=== PATIENT | female | born 1935 | race Caucasian/White ===

== ENCOUNTER 2016-09-24 16:07 | Inpatient (IN) | payer OTHER ==
[~2016-09-24] VITALS: Ht 149.9 cm; Wt 49.9 kg
[~2016-09-24 16:07] MED LIST: ACET-3820 PO; ATI.5 PO; CILO100T13 PO; MECL-272 PO; METO25TA PO; PENT400T PO; TRAM50TA94 PO
[2016-09-24 16:18] VITALS: BP 116/78
--- NOTE | 2016-09-24 16:59 | NUR ---
Patient to XRAY via wheelchair per tech.
--- NOTE | 2016-09-24 17:10 | NUR ---
Patient to lobby from XRAY via wheelchair per tech.
--- NOTE | 2016-09-24 17:13 | NUR ---
Patient to bed 07.
--- NOTE | 2016-09-24 17:14 | NUR ---
80/F BIB FRIEND C/O RIGHT UPPER ARM PAIN ONLY WHEN MOVING X 1 WK. PT STATES PT HAD A FALL 3 MONTHS AGO;DENIES ALOC. DENIES N/V/D; SKIN IS PINK/WARM/DRY; AAOX4 AMBULATES WITH CANE; LUNGS CLEAR BL; HR EVEN AND REGULAR; PT DENIES ANY FEVER, CP, SOB AT THIS TIME; PATIENT STATES PAIN OF 10/10 ONLY WHEN MOVES HER RIGHT ARM; VSS; PATIENT POSITIONED FOR COMFORT; HOB ELEVATED; BEDRAILS UP X2; BED DOWN. ER MADE AWARE OF PT STATUS. Addendum: 09/24/16 at 1900 by [email or web address] PT STATES HAS CHEST PAIN 3 ISAAC
--- NOTE | 2016-09-24 17:57 | NUR ---
Dr. Fitzpatrick evaluating patient at bedside.
[2016-09-24] MEDS ORDERED: ASPIRIN 81 MG TAB.CHEW PO ONE (18:35)
[2016-09-24 18:48] LABS: BASOPHILS # (AUTO) 0.1 K/uL (0.00-0.22); BASOPHILS % (AUTO) 1.2 % (0.0-2.0); EOSINOPHILS # (AUTO) 0.3 K/uL (0-0.4); EOSINOPHILS % (AUTO) 3.1 % (0.0-4.0); HEMATOCRIT 41.9 % (36-48); HEMOGLOBIN 13.9 g/dL (12.0-16.0); LYMPHOCYTES # (AUTO) 2.5 K/uL (2.5-16.5); LYMPHOCYTES % (AUTO) 24.5 % (20.5-51.1); MEAN CORPUSCULAR HEMOGLOBIN 31 pg (27-31); MEAN CORPUSCULAR HGB CONC 33 g/dL (33-37); MEAN CORPUSCULAR VOLUME 95 fL (80-94); MONOCYTES # (AUTO) 0.7 K/uL (0.8-1.0); MONOCYTES % (AUTO) 6.6 % (1.7-9.3); NEUTROPHILS # (AUTO) 6.7 K/uL (1.8-7.7); NEUTROPHILS % (AUTO) 64.6 % (42.2-75.2); PLATELET COUNT (AUTO) 274 K/uL (140-450); RED BLOOD CELL COUNT(AUTO) 4.42 MIL/uL (4.20-5.40); RED CELL DISTRIBUTION WIDTH 13.2 % (11.6-13.7); WHITE BLOOD COUNT (AUTO) 10.3 K/uL (4.8-10.8)
[2016-09-24 19:06] LABS: ANION GAP 11.4 (8-16); CALCIUM 9.5 mg/dL (8.5-10.1); CARBON DIOXIDE 31.9 mmol/L (21-32); CHLORIDE 105 mmol/L (98-107); CREATININE 0.9 mg/dL (0.6-1.3); GLUCOSE 116 mg/dL (74-106); INR 1.1 (0.8-1.2); PARTIAL THROMBOPLASTIN TIME 26.1 secs (22-35.6); POTASSIUM 4.3 mmol/L (3.5-5.1); PROTHROMBIN TIME 10.3 secs (10.8-13.4); SODIUM SERUM 144 mmol/L (136-145); UREA NITROGEN, BLOOD 16 mg/dL (7-18)
[2016-09-24 19:11] LABS: ALANINE AMINOTRANSFERASE 36 U/L (12-78); ALBUMIN 3.6 g/dL (3.4-5.0); ALKALINE PHOSPHATASE 69 U/L (46-116); ASPARTATE AMINOTRANSFERASE 21 U/L (15-37); TOTAL BILIRUBIN 0.2 mg/dL (0.0-1.0); TOTAL PROTEIN, SERUM 7.5 g/dL (6.4-8.2)
--- NOTE | 2016-09-24 19:23 | NUR ---
Pt report given to MAIA JACKSON. Transfer of care at this time.
[2016-09-24] MEDS ORDERED: ACETAMINOPHEN 325 MG TAB PO PRN (19:25)
[2016-09-24] MEDS ORDERED: MORPHINE SULFATE 2 MG/ML SYR IVP PRN (19:25)
[2016-09-24] MEDS ORDERED: ONDANSETRON 4 MG/2 ML VIAL IVP PRN (19:25)
--- NOTE | 2016-09-24 19:34 | NUR ---
GAVE REPORT TO MAIA SMART FOR TRANSFER OF CARE
--- NOTE | 2016-09-24 19:50 | NUR ---
Patient will be admitted to care of . Admited to TELEMETRY. Will go to room 112B. Belongings list completed. Report to Ananth PAINTER RN Addendum: 09/24/16 at 1999 by KYLIE CORRECTION:ROOM 119B
--- NOTE | 2016-09-24 19:55 | NUR ---
PATIENT VERBALIZED REQUEST AND CONSENT FOR DNR. PATIENT IS AAOX4, ER MD MARIE SIGNED DNR FORM. FLOOR RN AWARE AND WILL INFORM ATTENDING PHYSICIAN. DAUGHTER ALON AT BEDSIDE AND VERBALIZED UNDERSTANDING OF PATIENT'S DNR STATUS.
--- NOTE | 2016-09-24 20:16 | NUR ---
RECEIVED FROM ER PER SHREYAS AWAKE AND ALERT. NO SOB. DENIES PAIN AT THIS TIME. DX. OF CHEST PAIN. ON TELEMETRY MONITORING. C/O RIGHT HAND PAIN SINCE FALL OF 3 MONTHS AGO. SKIN INTACT. CARE PLANS FOR THE NIGHT DISCUSSED WITH HER AND FAMILY. CALL LIGHT WITH IN REACH. IVF SITE TO LEFT WRIST # 20. RIGHT LEG . VITILIGO TO RIGHT LOWER LEG. SKIN INTACT. AMBULATING WELL. ACCOMPANIED BY DAUGHTER AND PT. STATES THAT SHE WANTS A DNR STATUS. VERBALIZING WELL IN FRISIAN.
[2016-09-24 21:02] VITALS: BP 128/77
[2016-09-24] MEDS: LORazepam 0.5 MG TAB PO SCH (21:43)
[2016-09-24] MEDS: traMADol 50 MG TAB PO SCH (21:43)
[2016-09-24] MEDS: MECLIZINE 25 MG TAB PO SCH (21:43)
--- NOTE | 2016-09-24 22:00 | NUR ---
PT. WALKING AROUND THE ROOM AND LOOKING OUT THE WINDOW. " I AM JUST WANTING TO SEE THE SURROUNDINGS. " GOOD AFFECT. NO SOB. DENIES CHEST PAIN. RE-ORIENTED TO CALL LIGHT USE FOR ANY HELP SHE MAY NEED OR IF IN PAIN. RAPID RESPOSE MECHANISM / USE EXPLAINED TO PT.
--- NOTE | 2016-09-24 23:01 | NUR ---
IN BED AND SLEEPING AT THIS TIME. CALL LIGHT WITH IN REACH. NO SOB. NO CHEST PAIN COMPLAINTS DONE AT THIS TIME.
[2016-09-25 00:46] VITALS: BP 127/63
--- NOTE | 2016-09-25 02:00 | NUR ---
PT. STILL AWAKE AT THIS TIME. "I AM A NIGHT OWL" WATCHING TV. GOOD AFFECT. DENIES ANY PAIN. CALL LIGHT WITH IN REACH.NO SOB. TELEMETRY MONITORING. AMBULATES AROUND ROOM BY HERSELF. INDEPENDENT.
[2016-09-25 02:36] LABS: CREATINE KINASE MB 1.8 ng/mL (0-3.6)
[2016-09-25 04:00] VITALS: BP 126/62
--- NOTE | 2016-09-25 05:00 | NUR ---
PT. CHECKED AND NOTED SHE IS SLEEPING AT THIS TIME. CALL LIGHT WITH IN REACH. NO RESTLESSNESS AND ON TELEMETRY MONITORING.
[2016-09-25 06:21] LABS: BASOPHILS # (AUTO) 0.1 K/uL (0.00-0.22); BASOPHILS % (AUTO) 1.3 % (0.0-2.0); EOSINOPHILS # (AUTO) 0.4 K/uL (0-0.4); EOSINOPHILS % (AUTO) 4.3 % (0.0-4.0); HEMATOCRIT 37.2 % (36-48); HEMOGLOBIN 12.4 g/dL (12.0-16.0); LYMPHOCYTES # (AUTO) 2.4 K/uL (2.5-16.5); LYMPHOCYTES % (AUTO) 28.7 % (20.5-51.1); MEAN CORPUSCULAR HEMOGLOBIN 32 pg (27-31); MEAN CORPUSCULAR HGB CONC 33 g/dL (33-37); MEAN CORPUSCULAR VOLUME 95 fL (80-94); MONOCYTES % (AUTO) 11.5 % (1.7-9.3); NEUTROPHILS # (AUTO) 4.4 K/uL (1.8-7.7); NEUTROPHILS % (AUTO) 54.2 % (42.2-75.2); PLATELET COUNT (AUTO) 216 K/uL (140-450); RED BLOOD CELL COUNT(AUTO) 3.92 MIL/uL (4.20-5.40); RED CELL DISTRIBUTION WIDTH 13.1 % (11.6-13.7); WHITE BLOOD COUNT (AUTO) 8.3 K/uL (4.8-10.8)
[2016-09-25 06:41] LABS: ALANINE AMINOTRANSFERASE 33 U/L (12-78); ALBUMIN 2.9 g/dL (3.4-5.0); ALKALINE PHOSPHATASE 57 U/L (46-116); ANION GAP 10.3 (8-16); ASPARTATE AMINOTRANSFERASE 21 U/L (15-37); CALCIUM 8.8 mg/dL (8.5-10.1); CHLORIDE 106 mmol/L (98-107); CREATININE 0.8 mg/dL (0.6-1.3); GLUCOSE 160 mg/dL (74-106); POTASSIUM 3.3 mmol/L (3.5-5.1); SODIUM SERUM 142 mmol/L (136-145); TOTAL BILIRUBIN 0.2 mg/dL (0.0-1.0); TOTAL PROTEIN, SERUM 6.2 g/dL (6.4-8.2); UREA NITROGEN, BLOOD 15 mg/dL (7-18)
--- NOTE | 2016-09-25 07:25 | NUR ---
ENDORSED TO THE NEXT RN FOR CONTINUITY OF CARE. SLEEPING. AROUSABLE. GOOD AFFECT. NO COMPLAINTS DONE.
--- NOTE | 2016-09-25 07:30 | NUR ---
RECEIVED PT RESTING COMFORTABLY IN BED, AAOX4, ABLE TO VERBALIZE NEEDS; NO COMPLAINTS OF PAIN, SOB, OR S/S ACUTE DISTRESS AT THIS TIME. ROUTINE/PLAN OF CARE DISCUSSED AND REVIEWED, PT VERBALIZES UNDERSTANDING AND COMPLIANCE. IV SL TO LEFT FA, SITE ASYMPTOMATIC. SAFETY PRECAUTIONS OBSERVED AND MAINTAINED, ENCOURAGED PT TO CALL FOR ASSISTANCE NEEDED.
[2016-09-25 08:00] VITALS: BP 112/62
--- NOTE | 2016-09-25 08:24 | NUR ---
PATIENT HAS BEEN SCREENED AND CATEGORIZED LOW NUTRITION RISK. PATIENT WILL BE SEEN WITHIN 7 DAYS OF ADMISSION. 10/01/[address]
[2016-09-25] MEDS ORDERED: METOPROLOL 25 MG TAB PO SCH (09:00)
[2016-09-25] MEDS ORDERED: PENTOXIFYLLINE 400 MG TABER PO SCH (09:00)
[2016-09-25] MEDS ORDERED: CILOSTAZOL 100 MG TAB PO SCH (09:00)
[2016-09-25] MEDS ORDERED: ASPIRIN 81 MG TAB.CHEW PO SCH (09:00)
[2016-09-25] MEDS: MECLIZINE 25 MG TAB PO SCH (09:03)
[2016-09-25] MEDS: LORazepam 0.5 MG TAB PO SCH (09:07)
[2016-09-25] MEDS: traMADol 50 MG TAB PO SCH (09:09)
--- NOTE | 2016-09-25 09:09 | NUR ---
VSS. ADMINISTERED ROUTINE MEDS ORDERED WITH EDUCATION, PT TOLERATED WELL. INDEPENDENT ADLs OBSERVED, DAUGHTERS AT BEDSIDE. DISCUSSED PT CONDITION AND PLAN OF CARE. ENCOURAGED PT TO CALL FOR ASSISTANCE NEEDED.
[2016-09-25] MEDS ORDERED: POTASSIUM CHLORIDE 10 MEQ TABER PO SCH (09:20)
[2016-09-25 10:40] LABS: CREATINE KINASE MB 1.3 ng/mL (0-3.6)
--- NOTE | 2016-09-25 10:45 | NUR ---
CM NOTE INITIAL REVIEW FAXED TO [facility] / FAX# [phone], ATTN: YANIRA #[phone]
--- NOTE | 2016-09-25 11:30 | NUR ---
PT STATES SHE IS DIABETIC, EP=[id number]. PAGED DR GILMAN AT THIS TIME.
[2016-09-25 12:00] VITALS: BP 133/74
[2016-09-25] MEDS ORDERED: DEXTROSE 50% 50 ML SYR IVP PRN (12:15)
[2016-09-25] MEDS ORDERED: INSULIN LISPRO SLIDING SCALE 100 UNITS/ML VIAL SUBQ PRN (12:15)
--- NOTE | 2016-09-25 14:00 | NUR ---
CONDITION REMAINS STABLE. PT RESTING QUIETLY IN BED.
[2016-09-25 16:00] VITALS: BP 94/54
--- NOTE | 2016-09-25 16:00 | NUR ---
PT SEEN AND ASSESSED BY DR GILMAN AT BEDSIDE WITH FAMILY MEMBER PRESENT. DC ORDERS ACKNOWLEDGED AND CARRIED OUT, DC PLAN DISCUSSED AND REVIEWED WITH PATIENT. VSS.
[2016-09-25] MEDS ORDERED: BLOOD GLUCOSE MONITORING 1 DEV DEV FS SCH (16:30)
[2016-09-25 16:37] VITALS: BP 94/54
--- NOTE | 2016-09-25 17:40 | NUR ---
DISCHARGE INSTRUCTIONS AND EDUCATION GIVEN AND DISCUSSED WITH PT AND FAMILY MEMBER; PT VERBALIZES UNDERSTANDING AND SIGNS ALL FORMS. DC'D IV WITH CANNULA INTACT, SITE DRESSED. PT EATING DINNER AT THIS TIME. INSTRUCTED PT TO CALL WHEN READY TO BE ESCORTED OUT OF FACILITY.
--- NOTE | 2016-09-25 18:38 | NUR ---
DISCHARGED PT HOME AT THIS TIME IN STABLE CONDITION WITH FAMILY MEMBER.
[2016-09-25] MEDS ORDERED: ATORVASTATIN 20 MG TAB PO SCH (21:00)
== END 2016-09-25 18:50 | disposition home or self-care (01) | DRG 206 ==
LOC: MED 16:07 → MTU 19:27
PROVIDERS: ADMIT Internal Medicine Pulmonary Disease; ATTEND Internal Medicine Pulmonary Disease
DX: M94.0 Chondrocostal junction syndrome [Tietze] (principal); E11.9 Type 2 diabetes mellitus without complications; I11.9 Hypertensive heart disease without heart failure; Z66 Do not resuscitate; M79.621 Pain in right upper arm; W18.30XA Fall on same level, unspecified, initial encounter; Y93.89 Activity, other specified; Y92.89 Other specified places as the place of occurrence of the external cause; Y99.8 Other external cause status; Z79.899 Other long term (current) drug therapy
CPT/HCPCS: 36415; 71010; 73060; 80053; 82550; 82553; 82948; 83735; 83880; 84484; 85025; 85610; 85730; 87081; 93005; 99285; J1815; J8597

== ENCOUNTER 2017-08-18 19:50 | Emergency (ER) | payer OTHER ==
[~2017-08-18] VITALS: Ht 153 cm; Wt 36.3 kg
[2017-08-18 19:50] VITALS: BP 93/49
[~2017-08-18 19:50] MED LIST changes: -ACET-3820 PO; +ACET-9528 PO; +TRAM50TA1 PO; -TRAM50TA94 PO
--- NOTE | 2017-08-18 19:50 | NUR ---
Pt placed in bed from EMS. IV provided Right forearm. VSS A&Ox4
--- NOTE | 2017-08-18 19:51 | NUR ---
Pt came to ED via EMS after being on the floor for two hrs with resident caregiver. Family came home and found Pt and program trainer on the floor and called 911. Pt has Hx of DM. Intial blood glucose was 47, EMS gave 250ml of D10, in rout blood glucose was 118. Upon arrival to ED pt was A&Ox4 with a blood glucose of 107. Pt vss, in bed in poc, ER MD aware, Continue to monitor.
--- NOTE | 2017-08-18 19:57 | NUR ---
PT BROUGHT IN BY PARAMEDICS TO ER BED12
--- NOTE | 2017-08-18 20:00 | NUR ---
Pt given sandwich, crackers, and x2 boxes of orange juice. Pt c/o extreme hunger.
--- NOTE | 2017-08-18 20:21 | NUR ---
Blood glucose reassessed. Lab at bedside. VSS Pt A&Ox4
[2017-08-18 20:40] LABS: BASOPHILS # (AUTO) 0.4 K/uL (0.00-0.22); BASOPHILS % (AUTO) 3.5 % (0.0-2.0); EOSINOPHILS # (AUTO) 0.1 K/uL (0-0.4); HEMATOCRIT 40.8 % (36-48); HEMOGLOBIN 13.4 g/dL (12.0-16.0); LYMPHOCYTES # (AUTO) 1.3 K/uL (2.5-16.5); LYMPHOCYTES % (AUTO) 10.6 % (20.5-51.1); MEAN CORPUSCULAR HEMOGLOBIN 30 pg (27-31); MEAN CORPUSCULAR HGB CONC 33 g/dL (33-37); MEAN CORPUSCULAR VOLUME 91 fL (80-94); MONOCYTES # (AUTO) 0.5 K/uL (0.8-1.0); MONOCYTES % (AUTO) 4.2 % (1.7-9.3); NEUTROPHILS # (AUTO) 10.2 K/uL (1.8-7.7); NEUTROPHILS % (AUTO) 80.7 % (42.2-75.2); PLATELET COUNT (AUTO) 306 K/uL (140-450); RED BLOOD CELL COUNT(AUTO) 4.47 MIL/uL (4.20-5.40); WHITE BLOOD COUNT (AUTO) 12.5 K/uL (4.8-10.8)
[2017-08-18 20:49] LABS: ANION GAP 18.1 (8-16); CARBON DIOXIDE 22.5 mmol/L (21-32); CHLORIDE 97 mmol/L (98-107); CREATININE 0.8 mg/dL (0.6-1.3); GLUCOSE 134 mg/dL (74-106); POTASSIUM 3.6 mmol/L (3.5-5.1); SODIUM SERUM 134 mmol/L (136-145); UREA NITROGEN, BLOOD 22 mg/dL (7-18)
[2017-08-18 20:55] LABS: ALBUMIN 3.3 g/dL (3.4-5.0); ASPARTATE AMINOTRANSFERASE 114 U/L (15-37); TOTAL BILIRUBIN 0.3 mg/dL (0.0-1.0)
[2017-08-18 22:00] VITALS: BP 114/62
--- NOTE | 2017-08-18 22:33 | NUR ---
Patient being evaluated by physician at bedside.
--- NOTE | 2017-08-18 23:15 | NUR ---
Patient discharged with v/s stable. Blood glucose stable. Pt A&Ox4. Pt states ready to go home. Written and verbal after care instructions given and explained. Family picked up Pt from ED room. Patient verbalized understanding. Wheel Chair Assisted with to car. All questions addressed prior to discharge. Advised to follow up with PMD.
== END 2017-08-18 22:33 | disposition home or self-care (01) ==
LOC: MED 19:50
DX: E11.649 Type 2 diabetes mellitus with hypoglycemia without coma (principal); I10 Essential (primary) hypertension; Z79.899 Other long term (current) drug therapy
CPT/HCPCS: 36415; 80053; 81002; 85025; 99284; C1758

== ENCOUNTER 2017-08-21 08:20 | Emergency (ER) | payer OTHER ==
[~2017-08-21] VITALS: Ht 147.3 cm; Wt 43.1 kg
--- NOTE | 2017-08-21 08:20 | NUR ---
81/F BIBA FROM HOME C/O SLURRED SPEECH AND GEN WEAKNESS SINCE THIS MORNING. EMS STATES THAT FAMILY STS SEEN NL AT 10PM LAST NIGHT. ACCUCHECK 42MG/DL BY EMS. 20G IV TO RHAND WITH 250ML D50 GIVEN IV BE EMS. ACCUCHECK 222 MG/DL POST-MED. ERMD NOTIFIED OF PATIENT STATUS.
[2017-08-21 08:22] VITALS: BP 127/102
--- NOTE | 2017-08-21 08:26 | NUR ---
PT POOR HISTORIAN. WILL WAIT FOR PT FAMILY TO ARRIVE FOR MORE INFO.
--- NOTE | 2017-08-21 08:31 | NUR ---
Patient being evaluated by physician at bedside.
[2017-08-21] MEDS ORDERED: CAPTOPRIL 12.5 MG TAB PO ONE (08:35)
--- NOTE | 2017-08-21 08:49 | NUR ---
X-Ray at bedside.
[2017-08-21 08:55] LABS: BASOPHILS # (AUTO) 0.1 K/uL (0.00-0.22); BASOPHILS % (AUTO) 0.9 % (0.0-2.0); EOSINOPHILS # (AUTO) 0.1 K/uL (0-0.4); EOSINOPHILS % (AUTO) 0.5 % (0.0-4.0); HEMATOCRIT 40.6 % (36-48); HEMOGLOBIN 12.9 g/dL (12.0-16.0); MEAN CORPUSCULAR HEMOGLOBIN 29 pg (27-31); MEAN CORPUSCULAR HGB CONC 32 g/dL (33-37); MEAN CORPUSCULAR VOLUME 92 fL (80-94); MONOCYTES # (AUTO) 1.3 K/uL (0.8-1.0); MONOCYTES % (AUTO) 9.4 % (1.7-9.3); NEUTROPHILS # (AUTO) 11.3 K/uL (1.8-7.7); NEUTROPHILS % (AUTO) 82.2 % (42.2-75.2); PLATELET COUNT (AUTO) 328 K/uL (140-450); RED BLOOD CELL COUNT(AUTO) 4.41 MIL/uL (4.20-5.40); RED CELL DISTRIBUTION WIDTH 14.2 % (11.6-13.7); WHITE BLOOD COUNT (AUTO) 13.8 K/uL (4.8-10.8)
[2017-08-21 08:56] LABS: APPEARANCE,URINE CLEAR (CLEAR); BILIRUBIN,URINE NEGATIVE (NEGATIVE); BLOOD, URINE NEGATIVE (NEGATIVE); COLOR,URINE YELLOW (YELLOW); LEUKOCYTE ESTERASE ,URINE NEGATIVE (NEGATIVE); NITRITE, URINE NEGATIVE (NEGATIVE); UGLUCOSE NEGATIVE (NEGATIVE)
[2017-08-21 09:04] LABS: ANION GAP 17.1 (8-16); CARBON DIOXIDE 23.3 mmol/L (21-32); CHLORIDE 98 mmol/L (98-107); CREATININE 0.8 mg/dL (0.6-1.3); GLUCOSE 218 mg/dL (74-106); POTASSIUM 4.4 mmol/L (3.5-5.1); SODIUM SERUM 134 mmol/L (136-145); UREA NITROGEN, BLOOD 21 mg/dL (7-18)
[2017-08-21 09:10] LABS: ALBUMIN 3.2 g/dL (3.4-5.0); AMYLASE 103 U/L (25-115); ASPARTATE AMINOTRANSFERASE 65 U/L (15-37); LIPASE 219 U/L (73-393); MAGNESIUM 1.9 mg/dL (1.8-2.4); TOTAL BILIRUBIN 0.3 mg/dL (0.0-1.0)
--- NOTE | 2017-08-21 10:13 | NUR ---
PT AMBULATED TO BATHROOM AND BACK TO BED WITH ASSISTANCE FROM FEMALE STUDENT.
--- NOTE | 2017-08-21 11:33 | NUR ---
PT RESTING. VSS; PATIENT POSITIONED FOR COMFORT; HOB ELEVATED; BEDRAILS UP X2; BED DOWN. ER MD MADE AWARE OF PT STATUS.
[2017-08-21 11:43] LABS: RBC,URINE 0-5 (RARE) /HPF (0-5); WBC,URINE 0-5 (RARE) /HPF (0-5)
--- NOTE | 2017-08-21 12:32 | NUR ---
PT RESTING. VSS; PATIENT POSITIONED FOR COMFORT; HOB ELEVATED; BEDRAILS UP X2; BED DOWN. ER MD MADE AWARE OF PT STATUS.
--- NOTE | 2017-08-21 13:30 | NUR ---
PT AMBULATED TO BATHROOM AND BACK TO BED WITHOUT ASSISTANCE.
--- NOTE | 2017-08-21 13:55 | NUR ---
PT RESTING. VSS; PATIENT POSITIONED FOR COMFORT; HOB ELEVATED; BEDRAILS UP X2; BED DOWN. ER MD MADE AWARE OF PT STATUS.
[2017-08-21 15:11] VITALS: BP 121/72
--- NOTE | 2017-08-21 15:11 | NUR ---
Patient discharged with v/s stable. Written and verbal after care instructions given and explained. Patient verbalized understanding. Ambulatory with steady gait. All questions addressed prior to discharge. Advised to follow up with PMD.
== END 2017-08-21 15:11 | disposition home or self-care (01) ==
LOC: MED 08:20
DX: E11.649 Type 2 diabetes mellitus with hypoglycemia without coma (principal); I10 Essential (primary) hypertension; Z79.899 Other long term (current) drug therapy
CPT/HCPCS: 36415; 71045; 80053; 81001; 82150; 82948; 83036; 83690; 83735; 84484; 85025; 99285; Q0092